=== PATIENT | male | born 1990 | race Caucasian/White ===

== ENCOUNTER 2017-07-05 00:39 | Emergency (ER) | payer BC ==
[~2017-07-05] VITALS: Ht 167.6 cm; Wt 71.0 kg
[2017-07-05 01:00] VITALS: BP 133/57; PULSE 76; RESP 18; TEMP 99; O2SAT 100
--- NOTE | 2017-07-05 01:35 | RADRPT ---
EXAM DATE: 07/05/2017 1:28 AM EDT AGE/SEX: 26 years / Male INDICATIONS: Chest pain. CLINICAL DATA: This is the patient's initial encounter. Patient reports that signs and symptoms have been present for 3 weeks and indicates a pain score of 5/10. MEDICAL/SURGICAL HISTORY: None. None. COMPARISON: No prior [place] exams available for comparison. FINDINGS: A single AP view of the chest demonstrates the lungs to be symmetrically aerated without evidence of mass, infiltrate or effusion. The cardiomediastinal contours are unremarkable. Osseous structures a re intact. CONCLUSION: No evidence of acute cardiopulmonary disease. Electronically signed by: Chilo Temple MD 07/05/2017 1:34 AM EDT
[2017-07-05] MEDS ORDERED: KETOROLAC TROMETHAMINE 30 MG/ML (IVP) VIAL IV PUSH ONE (01:45)
[2017-07-05 01:48] LABS: AUTOMATED NEUTROPHIL # 8.4 TH/MM3 (1.8-7.7); BASOPHIL # 0.2 TH/MM3 (0-0.2); BASOPHIL % 1.4 % (0.0-2.0); EOSINOPHIL # 0.3 TH/MM3 (0-0.4); EOSINOPHIL % 2.2 % (0.0-4.0); HEMATOCRIT 43.7 % (39.0-51.0); HEMOGLOBIN 14.6 GM/DL (13.0-17.0); LYMPH % 18.6 % (9.0-44.0); LYMPHOCYTE # 2.2 TH/MM3 (1.0-4.8); MEAN CELL VOLUME 88.4 FL (80.0-100.0); MEAN CORPUSCULAR HEMOGLOBIN 29.5 PG (27.0-34.0); MEAN CORPUSCULAR HGB CONC 33.4 % (32.0-36.0); MEAN PLATELET VOLUME 8.3 FL (7.0-11.0); MONO % 6.7 % (0.0-8.0); MONOCYTE # 0.8 TH/MM3 (0-0.9); NEUT % 71.1 % (16.0-70.0); PLATELET COUNT 203 TH/MM3 (150-450); RED BLOOD COUNT 4.94 MIL/MM3 (4.50-5.90); RED CELL DISTRIBUTION WIDTH 12.4 % (11.6-17.2); WHITE BLOOD COUNT 11.9 TH/MM3 (4.0-11.0)
[2017-07-05 02:33] VITALS: BP 114/51; PULSE 77; RESP 18; O2SAT 98
[2017-07-05 03:10] LABS: BICARBONATE 28.2 MEQ/L (21.0-32.0); BLOOD UREA NITROGEN 25 MG/DL (7-18); CHLORIDE 103 MEQ/L (98-107); CREATININE 1.08 MG/DL (0.60-1.30); GLOMERULAR FILTRATION RATE 84 ML/MIN (>89); GLUCOSE,RANDOM 88 MG/DL (74-106); SODIUM (NA) 141 MEQ/L (136-145)
[2017-07-05 03:19] LABS: TROPONIN I LESS THAN 0.02 NG/ML (0.02-0.05)
--- NOTE | 2017-07-05 03:42 | PD ---
HPI Chief Complaint: Chest Pain Time Seen by Provider: 01:34 Travel History International Travel<30 days: No Contact w/Intl Traveler<30days: No Traveled to known affect area: No History of Present Illness HPI 26-year-old male with several weeks of constant left-sided chest discomfort that waxes and wanes in intensity but is always present maximum discomfort is 5/ 10 intensity baseline discomfort is 3-4/10 intensity. Patient is unable to identify exacerbating or alleviating factors but is aware that symptoms are worsened as going to chiropractic school and is concerned it may be related to stress. Patient denies personal history of cardiac disease hypertension dyslipidemia diabetes tobaccoism or thyroid dysfunction. Patient states that he notes symptoms primarily at bedtime. Patient has not had any weight loss or weight gain. Patient has not had any palpitations near syncope or syncope. Patient is very concerned that he may be experiencing the symptoms related to his schoolwork. PFSH Past Medical History Medical History: Denies Significant Hx Tetanus Vaccination: Unknown Influenza Vaccination: Yes Past Surgical History Surgical History: No Previous Surgery Social History Alcohol Use: No Tobacco Use: No Substance Use: No Allergies-Medications (Allergen,Severity, Reaction): Coded Allergies: No Known Allergies (Unverified , 07/05/17) Reported Meds & Prescriptions Reported Meds & Active Scripts Active No Active Prescriptions or Reported Medications Review of Systems Except as stated in HPI: all other systems reviewed are Neg General / Constitutional: No: Fever, Chills HENT: No: Congestion Cardiovascular: Positive: Chest Pain or Discomfort, No: Palpitations, Diaphoresis Respiratory: No: Shortness of Breath Gastrointestinal: No: Nausea, Vomiting Genitourinary: No: Dysuria, Decreased Urinary Output Musculoskeletal: No: Myalgias, Arthralgias Skin: No Rash Neurologic: No: Weakness Psychiatric: No: Anxiety Hematologic/Lymphatic: No: Lymph Node Enlargement Physical Exam Narrative GENERAL: Well-developed well-nourished male no acute distress or respiratory distress SKIN: Warm and dry. HEAD: Normocephalic. EYES: No scleral icterus. No injection or drainage. NECK: Supple, trachea midline. No JVD or lymphadenopathy. CARDIOVASCULAR: Regular rate and rhythm without murmurs, gallops, or rubs. Chest wall minimally tender to palpation does not reproduce pain at presentation RESPIRATORY: Breath sounds equal bilaterally. No accessory muscle use. GASTROINTESTINAL: Abdomen soft, non-tender, nondistended. MUSCULOSKELETAL: No cyanosis, or edema. BACK: Nontender without obvious deformity. No CVA tenderness. Data Data Last Documented VS Vital Signs Date Time Temp Pulse Resp B/P (MAP) Pulse Ox O2 Delivery O2 Flow Rate FiO2 07/05/17 04:03 74 18 98 07/05/17 04:03 Room Air 07/05/17 01:00 99.0 Orders Orders Electrocardiogram (07/05/17 01:13) Complete Blood Count With Diff (07/05/17 01:13) Basic Metabolic Panel (Bmp) (07/05/17 01:13) Ckmb (Isoenzyme) Profile (07/05/17 01:13) Troponin I (07/05/17 01:13) Chest, Single Ap (07/05/17 01:13) Iv Access Insert/Monitor (07/05/17 01:13) Ecg Monitoring (07/05/17 01:13) Oxygen Administration (07/05/17 01:13) Oximetry (07/05/17 01:13) D-Dimer (07/05/17 01:34) Ketorolac Inj (Toradol Inj) (07/05/17 01:45) Thyroid Stimulating Hormone (07/05/17 01:13) CKMB (07/05/17 01:28) CKMB% (07/05/17 01:28) Ed Discharge Order (07/05/17 03:40) Free T3 (07/05/17 01:28) Free Thyroxine (T4) (07/05/17 01:28) Labs Laboratory Tests Test 07/05/17 01:28 07/05/17 01:36 White Blood Count 11.9 TH/MM3 Red Blood Count 4.94 MIL/MM3 Hemoglobin 14.6 GM/DL Hematocrit 43.7 % Mean Corpuscular Volume 88.4 FL Mean Corpuscular Hemoglobin 29.5 PG Mean Corpuscular Hemoglobin Concent 33.4 % Red Cell Distribution Width 12.4 % Platelet Count 203 TH/MM3 Mean Platelet Volume 8.3 FL Neutrophils (%) (Auto) 71.1 % Lymphocytes (%) (Auto) 18.6 % Monocytes (%) (Auto) 6.7 % Eosinophils (%) (Auto) 2.2 % Basophils (%) (Auto) 1.4 % Neutrophils # (Auto) 8.4 TH/MM3 Lymphocytes # (Auto) 2.2 TH/MM3 Monocytes # (Auto) 0.8 TH/MM3 Eosinophils # (Auto) 0.3 TH/MM3 Basophils # (Auto) 0.2 TH/MM3 CBC Comment DIFF FINAL Differential Comment Blood Urea Nitrogen 25 MG/DL Creatinine 1.08 MG/DL Random Glucose 88 MG/DL Calcium Level 9.0 MG/DL Sodium Level 141 MEQ/L Potassium Level 4.0 MEQ/L Chloride Level 103 MEQ/L Carbon Dioxide Level 28.2 MEQ/L Anion Gap 10 MEQ/L Estimat Glomerular Filtration Rate 84 ML/MIN Total Creatine Kinase 227 U/L Creatine Kinase MB 0.8 NG/ML Troponin I LESS THAN 0.02 NG/ML Free Thyroxine 0.91 NG/DL Free Triiodothyronine (T3) pg/dL 3.15 PG/ML Thyroid Stimulating Hormone 3rd Gen 11.900 uIU/ML D-Dimer Quantitative (PE/DVT) LESS THAN 0.19 MG/L FEU MDM Medical Decision Making Medical Screen Exam Complete: Yes Emergency Medical Condition: Yes Medical Record Reviewed: Yes Interpretation(s) TSH: 11, elevated T3 and T4 values are found to be in normal range D-dimer is not elevated at 0.19 Troponin I is less than 0.2 not elevated Last Impressions Chest X-Ray 07/05/17 0113 Signed Impressions: CONCLUSION: No evidence of acute cardiopulmonary disease. CBC & BMP Diagram 07/05/17 01:28 Calcium Level 9.0 Vital Signs Date Time Temp Pulse Resp B/P (MAP) Pulse Ox O2 Delivery O2 Flow Rate FiO2 07/05/17 04:03 74 18 98 07/05/17 04:03 74 18 118/55 (76) 98 Room Air 07/05/17 02:33 77 18 114/51 (72) 98 Room Air 07/05/17 01:15 Room Air 07/05/17 01:15 Room Air 07/05/17 01:00 99.0 76 18 133/57 (82) 100 Differential Diagnosis Chest pain atypical chest pain musculoskeletal pain pleurisy costochondritis PE pneumonia ACS Narrative Course Patient placed on monitoring analyst IV access obtained specimens collections of resulting Patient identified to have normal abnormal TSH will order free T3 and T4 Patient resting comfortably voicing no concerns or complaints. Diagnosis Primary Impression: Atypical chest pain Additional Impression: Thyroid dysfunction Referrals: Primary Care Physician call for appointment Patient Instructions: General Instructions Additional Instructions: Follow-up with primary care provider regarding thyroid function Increase fluid hydration Take as needed ibuprofen for pain greater than 5/10 intensity or for fever 100.4 F or greater Return to the emergency department for concerns or change in condition Med/Other Pt SpecificInfo: No Meds Exist/No RX given Scripts No Active Prescriptions or Reported Meds Disposition: 01 DISCHARGE HOME Condition: Stable Adelaide Morrison MD July 05, 2017 03:42
[2017-07-05 04:01] LABS: FREE T3 3.15 PG/ML (2.18-3.98); FREE T4 0.91 NG/DL (0.76-1.46)
[2017-07-05 04:03] VITALS: BP 118/55; PULSE 74; RESP 18; O2SAT 98
--- NOTE | 2017-07-05 14:23 | EKG ---
Date Performed: 07/05/2017 Time Performed: 01:17:32 PTAGE: 26 years EKG: Sinus rhythm NORMAL ECG NO PREVIOUS TRACING DOCTOR: Kobe Iraheta Interpretating Date/Time 07/05/2017 14:22:48
== END 2017-07-05 04:04 | disposition home or self-care (01) ==
LOC: PHED 00:39
DX: R07.89 Other chest pain (principal); E07.9 Disorder of thyroid, unspecified
CPT/HCPCS: 71045; 80048; 82550; 82552; 84439; 84443; 84481; 84484; 85025; 85379; 93005; 96374; 99285; J1885